=== PATIENT | female | born 1980 | race Caucasian/White ===

== ENCOUNTER 2023-09-27 08:21 | Observation (INO) | payer OTHER ==
[2023-09-27] MEDS ORDERED: METHOCARBAMOL 500 MG TABLET ONE (09:40)
[2023-09-27] MEDS ORDERED: ACETAMINOPHEN INJECTION 100 ML IVPB ONE ×2 (09:40→20:50)
[2023-09-27] MEDS ORDERED: LIDOCAINE 4% PATCH TP ONE (09:40)
[2023-09-27 09:44] LABS: URINE APPEARANCE CLEAR; URINE BILIRUBIN NEGATIVE (NEGATIVE); URINE COLOR YELLOW; URINE GLUCOSE (UA) NEGATIVE (NEGATIVE); URINE KETONE TRACE (NEGATIVE); URINE LEUK ESTERASE NEGATIVE (NEGATIVE); URINE NITRITE NEGATIVE (NEGATIVE); URINE PROTEIN TRACE (NEGATIVE)
[2023-09-27 10:18] LABS: BASO % 0.4 % (0-2.0); EOS % 0.7 % (0-4.5); HEMATOCRIT 40.2 % (32.4-45.2); HEMOGLOBIN 13.9 GM/dL (10.7-15.3); MCH 30.5 pg (25.7-33.7); MCHC 34.7 g/dl (32.0-36.0); MEAN CELL VOLUME 87.7 fl (80-96); MEAN PLT VOLUME 8.7 fl (7.5-11.1); MONO % 7.8 % (3.8-10.2); NEUT % 80.1 % (42.8-82.8); PLATELET COUNT 287 10^3/uL (134-434); RBC 4.58 M/mm3 (3.60-5.2); RDW 12.6 % (11.6-15.6)
[2023-09-27 10:32] LABS: POTASSIUM 4.3 mmol/L (3.5-5.1)
[2023-09-27 10:34] LABS: CALCIUM 8.7 mg/dL (8.5-10.1)
[2023-09-27 10:35] LABS: ALBUMIN 3.9 g/dl (3.4-5.0); BLOOD UREA NITROGEN 13.1 mg/dL (7-18)
[2023-09-27 10:38] LABS: CREATININE 0.7 mg/dL (0.55-1.3)
[2023-09-27 10:40] LABS: BILIRUBIN,TOTAL 1.1 mg/dL (0.2-1); TOT PROT 8.1 g/dl (6.4-8.2)
[2023-09-27] MEDS: METHOCARBAMOL 750 MG TABLET PO ONE (10:41)
[2023-09-27] MEDS: ACETAMINOPHEN 1000 MG/100 ML BAG IVPB ONE (10:41)
[2023-09-27] MEDS: LIDOCAINE 5% TOPICAL PATCH TP ONE (10:41)
[2023-09-27 11:12] LABS: ACTIVATED PTT 30.1 SECONDS (25.2-36.5); INR 1.08 (0.83-1.09); PROTHROMBIN TIME (PATIENT) 12.5 SEC (9.7-13.0)
[2023-09-27] MEDS ORDERED: ENOXAPARIN NA (PORCINE) 80 MG/0.8 ML DISP.SYRIN SQ ONE ×2 (18:06→21:46)
[2023-09-27] MEDS: ENOXAPARIN NA (PORCINE) 60 MG/0.6 ML DISP.SYRIN SQ ONE (18:13)
[2023-09-27] MEDS: SODIUM CHLORIDE 1,000 ML IV SCH (18:13)
[2023-09-27] MEDS ORDERED: CYCLOBENZAPRINE HCL 5 MG TABLET ONE (20:50)
[2023-09-27 21:06] LABS: N-TERMINAL BNP 11.2 pg/ml (5-125)
[2023-09-27] MEDS: CYCLOBENZAPRINE HCL 5 MG TABLET PO SCH (21:45)
[2023-09-27] MEDS: LIDOCAINE PATCH REMOVAL MC SCH (21:53)
[2023-09-27] MEDS: ENOXAPARIN NA (PORCINE) 80 MG/0.8 ML DISP.SYRIN SQ SCH (21:53)
[2023-09-27 22:41] VITALS: BMI 23.2
[2023-09-28] MEDS: ACETAMINOPHEN 1000 MG/100 ML BAG IVPB PRN (03:05)
[2023-09-28 05:39] VITALS: RESP 20
[2023-09-28 06:45] LABS: INR 1.2 (0.83-1.09); PROTHROMBIN TIME (PATIENT) 13.9 SEC (9.7-13.0)
[2023-09-28 06:51] LABS: BASO % 0.5 % (0-2.0); EOS % 1.3 % (0-4.5); HEMATOCRIT 32.3 % (32.4-45.2); HEMOGLOBIN 11.4 GM/dL (10.7-15.3); LYMPH % 20.6 % (8-40); MCH 30.9 pg (25.7-33.7); MCHC 35.2 g/dl (32.0-36.0); MEAN CELL VOLUME 87.7 fl (80-96); MEAN PLT VOLUME 9.2 fl (7.5-11.1); MONO % 8.4 % (3.8-10.2); NEUT % 69.2 % (42.8-82.8); PLATELET COUNT 231 10^3/uL (134-434); RBC 3.68 M/mm3 (3.60-5.2); RDW 12.2 % (11.6-15.6)
[2023-09-28 07:32] LABS: POTASSIUM 3.9 mmol/L (3.5-5.1)
[2023-09-28 07:36] LABS: BLOOD UREA NITROGEN 10.7 mg/dL (7-18); MAGNESIUM 1.9 mg/dL (1.8-2.4)
[2023-09-28 07:39] LABS: CREATININE 0.6 mg/dL (0.55-1.3); PHOSPHOROUS 3.1 mg/dL (2.5-4.9)
[2023-09-28 07:41] LABS: BILIRUBIN,TOTAL 0.8 mg/dL (0.2-1)
[2023-09-28 08:16] VITALS: BP 112/82; PULSE 95; TEMP 97.3
[2023-09-28 08:19] LABS: ALBUMIN 2.8 g/dl (3.4-5.0); TOT PROT 6.1 g/dl (6.4-8.2)
[2023-09-28] MEDS: APIXABAN 5 MG TABLET PO SCH (09:39)
[2023-09-28] MEDS: LIDOCAINE 4% PATCH TP SCH (09:39)
[2023-09-28] MEDS ORDERED: ACETAMINOPHEN 1000 MG/100 ML BAG IVPB ONE (10:00)
[2023-10-05] MEDS ORDERED: APIXABAN 5 MG TABLET PO SCH (10:00)
== END 2023-09-28 14:00 | disposition home or self-care (01) ==
LOC: JER 08:21 → JERBED 15:44 → J4W 22:26
PROVIDERS: ADMIT Internal Medicine; ATTEND Nurse Practitioner Acute Care
PROC: 3E033NZ Introduction of Analgesics, Hypnotics, Sedatives into Peripheral Vein, Percutaneous Approach (ICD-10-PCS; principal; 2023-09-27)
PROC: 3E023GC Introduction of Other Therapeutic Substance into Muscle, Percutaneous Approach (ICD-10-PCS; 2023-09-27)
PROC: 3E0337Z Introduction of Electrolytic and Water Balance Substance into Peripheral Vein, Percutaneous Approach (ICD-10-PCS; 2023-09-27)
DX: I26.99 Other pulmonary embolism without acute cor pulmonale (principal); M54.6 Pain in thoracic spine; M25.511 Pain in right shoulder; Z29.89 Encounter for other specified prophylactic measures
CPT/HCPCS: 0241U-QW; 36415; 71046-TC-FY; 71275-TC; 80053; 81003; 83735; 83880; 84100; 84703; 85025; 85379; 85610; 85730; 87086; 93005; 93010; 93306-TC; 93970-TC; 96361; 96372; 96374; 96376; 99285-25; G0378; J0131; Q9967

== ENCOUNTER 2024-02-05 12:25 | Emergency (ER) | payer OTHER ==
[2024-02-05 12:37] VITALS: BP 115/69; PULSE 96; RESP 20; TEMP 98.4; BMI 24.3
[2024-02-05] MEDS ORDERED: METHOCARBAMOL 500 MG TABLET ONE (14:11)
[2024-02-05] MEDS ORDERED: LIDOCAINE 5% TOPICAL PATCH ONE (14:11)
[2024-02-05] MEDS ORDERED: ACETAMINOPHEN 325 MG TABLET (FP) ONE (14:11)
[2024-02-05] MEDS: ACETAMINOPHEN 325 MG TABLET (FP) PO ONE (14:33)
[2024-02-05] MEDS: LIDOCAINE 5% TOPICAL PATCH TP ONE (14:34)
[2024-02-05] MEDS: METHOCARBAMOL 500 MG TABLET PO ONE (14:34)
[2024-02-05] MEDS ORDERED: LIDOCAINE PATCH REMOVAL MC SCH (22:00)
== END 2024-02-05 16:59 | disposition home or self-care (01) ==
LOC: JER 12:25
DX: S50.811A Abrasion of right forearm, initial encounter (principal); M54.2 Cervicalgia; R07.9 Chest pain, unspecified; V43.52XA Car driver injured in collision with other type car in traffic accident, initial encounter; Y92.410 Unspecified street and highway as the place of occurrence of the external cause
CPT/HCPCS: 70450-TC; 71046-TC-FY; 72125-TC; 73130-TC-RT-FY; 99284-25